=== PATIENT | male | born 1955 | race Caucasian/White ===

== ENCOUNTER 2019-12-01 20:09 | Emergency (ER) | payer BC, MEDICARE, OTHER ==
[2019-12-01 20:34] LABS: Absolute Lymphocytes (CBC) 2.6 K/uL (0.7-4.9); Hematocrit 42.7 % (39.6-49.0); Lymphocytes % 37.4 % (15.3-44.8); MPV 8.3 fL (7.6-11.3); RBC Red Blood Cell Count 4.38 M/uL (4.33-5.43)
[2019-12-01 20:41] LABS: Protime INR 0.94
[2019-12-01 20:53] LABS: Albumin 3.8 g/dL (3.4-5.0); Bilirubin Direct 0.2 mg/dL (0-0.2); Bilirubin Total 1.1 mg/dL (0.2-1.0); Potassium 3.6 mmol/L (3.5-5.1); Protein, Total 6.9 g/dL (6.4-8.2)
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
[2019-12-01] MEDS ORDERED: TETANUS & DIPHTHERIA TOX,ADULT 0.5 ML VIAL ONE (21:07)
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
[2019-12-01 23:57] VITALS: TEMP 98.7
[2019-12-02 00:14] VITALS: BP 92/59; O2SAT 96
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
== END 2019-12-01 23:44 | disposition home or self-care (01) ==
LOC: ER 20:09
DX: S02.32XA Fracture of orbital floor, left side, initial encounter for closed fracture (principal); F10.129 Alcohol abuse with intoxication, unspecified; V49.49XA Driver injured in collision with other motor vehicles in traffic accident, initial encounter; Z23 Encounter for immunization; Z95.818 Presence of other cardiac implants and grafts
CPT/HCPCS: 85025; 80048; 36415; 80320; 85610; 80076; 85730; 70450; 72125; 71260; 70486; 76377; 74177; 90471; 90714; 99284; Q9967; G0390

== ENCOUNTER 2021-01-01 11:17 | Emergency (ER) | payer OTHER, BC ==
[2021-01-01 12:33] LABS: Protime INR 1.03
[2021-01-01 12:35] LABS: Absolute Lymphocytes (CBC) 1.2 K/uL (0.7-4.9); Basophils % 0.8 % (0-1.3); Hematocrit 45.5 % (39.6-49.0); Lymphocytes % 19.1 % (15.3-44.8); MPV 8.2 fL (7.6-11.3); RBC Red Blood Cell Count 4.47 M/uL (4.33-5.43)
--- NOTE | 2021-01-01 12:45 | RAD REPORT ---
EXAM DESCRIPTION: RAD - Chest Single View - 01/01/2021 12:40 pm CLINICAL HISTORY: CHEST PAIN Chest pain. COMPARISON: CHEST SINGLE VIEW dated 03/11/2014; CHEST SINGLE VIEW dated 03/10/2014; CHEST SINGLE VIE W dated 12/11/2009 FINDINGS: Portable technique limits examination quality. The lungs are grossly clear. The heart is normal in size. No displaced fractures. IMPRESSION: No acute intrathoracic process suspected.
--- NOTE | 2021-01-01 12:49 | RAD REPORT ---
EXAM DESCRIPTION: CT - Head Brain Wo Cont - 01/01/2021 12:44 pm CLINICAL HISTORY: syncope;Dizziness Headache, drowsiness COMPARISON: Facial Bones W/ Mpr dated 12/01/2019; CT HEAD BRAIN WWO CONTRAST dated 01/16/2015 TECHNIQUE: All CT scans are performed using dose optimization technique as appropriate and may inclu de automated exposure control or mA/KV adjustment according to patient size. FINDINGS: No intracranial hemorrhage, hydrocephalus or extra-axial fluid collection.No areas of brai n edema or evidence of midline shift. Small amount of mucus is present in the inferior left maxillary antrum. The paranasal sinuses and mas toids are otherwise clear. The calvarium is intact. IMPRESSION: No acute intracranial abnormality.
[2021-01-01 13:13] LABS: ALT/SGPT 47 U/L (12-78); AST/SGOT 44 U/L (15-37); Albumin 4.1 g/dL (3.4-5.0); Alkaline Phosphatase 53 U/L (45-117); BUN Blood Urea Nitrogen 22 mg/dL (7-18); Bicarbonate 28 mmol/L (21-32); Bilirubin Direct 0.2 mg/dL (0-0.2); Bilirubin Total 0.8 mg/dL (0.2-1.0); Glucose Level 119 mg/dL (74-106); NT PRO-BNP 411 pg/mL (<125); Potassium 3.7 mmol/L (3.5-5.1); Protein, Total 7.1 g/dL (6.4-8.2); Sodium Level 139 mmol/L (136-145); Troponin (Emerg Dept Use Only) < 0.02 ng/mL (0.0-0.045)
--- NOTE | 2021-01-01 15:10 | EDPHYS ---
Physician Documentation [facility] Name: Mann Nixon Age: 65 yrs Sex: Male : 1955 Arrival Date: 01/01/2021 Time: 12:05 Bed 17 Private MD: ED Physician Bharathi Hooper HPI: 01/01 14:59 This 65 yrs old Male presents to ER via EMS with complaints of syncope. m 14:59 The patient has experienced syncope. Onset: The symptoms/episode began/occurred jm acutely, just prior to arrival. Duration: This was a single episode. Associated injury: The patient did not suffer any apparent associated injury. Associated signs and symptoms: Pertinent negatives: abdominal pain, chest pain, shortness of breath. This is a 65-year-old male with history of coronary arterial disease, CVA that presents to the ED after an acute onset syncopal episode. Patient states this occurred while he was bending over and as he was standing back up he collapsed. Patient states his next memory was waking up. Patient currently denies any unilateral weakness nausea chest pain abdominal pain. Historical: - Allergies: 12:14 No Known Allergies; bp - Home Meds: 12:14 rivaroxaban oral [Active]; Metformin Oral [Active]; losartan oral [Active]; Metoprolol bp Tartrate Oral [Active]; Nitroglycerin SL [Active]; - PMHx: 12:14 Myocardial infarction; CVA; Cerebrovascular accident; bp - Immunization history:: Adult Immunizations up to date. - Social history:: Smoking status: unknown. ROS: 14:59 Constitutional: Negative for fever, chills, and weight loss, Cardiovascular: Negative jmm for chest pain, palpitations, and edema, Respiratory: Negative for shortness of breath, cough, wheezing, and pleuritic chest pain. 14:59 Neuro: Positive for loss of consciousness. 14:59 All other systems are negative. Exam: 14:59 Constitutional: This is a well developed, well nourished patient who is awake, alert, jmm and in no acute distress. Head/Face: atraumatic. Eyes: EOMI, no conjunctival erythema appreciated ENT: Moist Mucus Membranes Neck: Trachea midline, Supple Chest/axilla: Normal chest wall appearance and motion. Cardiovascular: Regular rate and rhythm. No edema appreciated Respiratory: Normal respirations, no respiratory distress appreciated Abdomen/GI: Non distended, soft Back: Normal ROM Skin: General appearance color normal MS/ Extremity: Moves all extremities, no obvious deformities appreciated, no edema noted to the lower extremities 14:59 Neuro: Orientation: is normal, Mentation: is normal, Memory: is normal. 14:59 Psych: Behavior/mood is pleasant, cooperative, anxious. Vital Signs: 12:10 BP 112 / 94; Pulse 76; Resp 15; Temp 97.6(TE); Pulse Ox 95% on R/A; Weight 126.1 kg; 5 Height 5 ft. 8 in. (172.72 cm); Pain 0/10; 12:11 BP 112 / 94; Pulse 84; Resp 17; Temp 98; Pulse Ox 97% ; bp 13:00 BP 150 / 85; Pulse 79; Resp 13; Pulse Ox 94% ; bp 13:53 BP 104 / 92; Pulse 82; Resp 20; Pulse Ox 94% ; bp 15:31 BP 115 / 77; Pulse 76; Resp 20; Temp 98; Pulse Ox 96% ; bp 12:10 Body Mass Index 42.27 (126.10 kg, 172.72 cm) [facility] MDM: 12:24 Patient medically screened. [facility] 15:01 Data reviewed: vital signs, nurses notes. Counseling: I had a detailed discussion with [facility] the patient and/or guardian regarding: the historical points, exam findings, and any diagnostic results supporting the discharge/admit diagnosis, lab results, radiology results, the need for outpatient follow up, the need for further work-up and treatment in the hospital. Refusal of service: The patient/guardian displays adequate decision making capability and despite a detailed discussion of alternatives, benefits, risks, and consequences refuses: Admission to the hospital for further work-up and treatment. 15:06 ED course: I discussed the patient with Dr. Crawley whom advises for the patient to follow [facility] up with pcp for work clearance. Patient's vital signs have been within normal limits. Atrial fibrillation is anticoagulated. CT brain negative. H/H normal. Patient given strict return precautions. Patient understood and agrees with the plan of care. . 01/01 12:14 Order name: Basic Metabolic Panel; Complete Time: 13:17 [facility] 01/01 12:14 Order name: CBC with Diff; Complete Time: 12:52 [facility] 01/01 12:14 Order name: LFT's; Complete Time: 13:17 [facility] 01/01 12:14 Order name: Magnesium; Complete Time: 13:17 [facility] 01/01 12:14 Order name: NT PRO-BNP; Complete Time: 13:17 [facility] 01/01 12:14 Order name: PT-INR; Complete Time: 12:52 [facility] 01/01 12:14 Order name: Troponin (emerg Dept Use Only); Complete Time: 13: [facility] 01/01 12:14 Order name: XRAY Chest (1 view); Complete Time: 12:52 [facility] 01/01 12:14 Order name: EKG; Complete Time: 12:15 [facility] 01/01 12:14 Order name: Cardiac monitoring; Complete Time: 12:15 [facility] 01/01 12:14 Order name: EKG - Nurse/Tech; Complete Time: 12:15 [facility] 01/01 12:14 Order name: IV Saline Lock; Complete Time: 12:15 [facility] 01/01 12:14 Order name: Labs collected and sent; Complete Time: 12: [facility] 01/01 12:25 Order name: CT Head Brain wo Cont; Complete Time: 12:52 [facility] 01/01 12:14 Order name: O2 Per Protocol; Complete Time: 12: [facility] 01/01 12:14 Order name: O2 Sat Monitoring; Complete Time: 12:16 jm Administered Medications: No medications were administered Disposition: 16:26 Co-signature as Attending Physician, Bharathi Hooper MD. rn 16:26 I agree with the assessment and plan of care. Attestation: The patient's history, exam rn findings, diagnostics, and a summary of any interventions or procedures was reviewed in detail with Juan VINCENT. Disposition Summary: 01/01/21 15:09 Discharge Ordered Location: Home [facility] Condition: Stable [facility] Diagnosis - Syncope [facility] Followup: m - With: Private Physician - When: 1 - 2 days - Reason: Recheck today's complaints, Continuance of care, Re-evaluation by your physician Discharge Instructions: - Discharge Summary Sheet jm - Syncope jm Forms: - Medication Reconciliation Form jmm - Thank You Letter jmm - Antibiotic Education jmm - Work release form jmm - Prescription Opioid Use [facility] Signatures: Dispatcher [employer] Juan Lott PA PA jmm Nieto, Roman, MD MD rn AmberlySea napoles RN RN bp Corrections: (The following items were deleted from the chart) 12:18 12:14 Home Meds: Metformin Oral; bp bp
--- NOTE | 2021-01-01 15:10 | ER ---
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 Coronavirus screen: bp At this time, the client does not indicate any symptoms associated with coronavirus-19. Ebola Screen: No symptoms or risks identified at this time. Initial Sepsis Screen: Does the patient meet any 2 criteria? No. Patient's initial sepsis screen is negative. Does the patient have a suspected source of infection? No. Patient's initial sepsis screen is negative. Risk Assessment: Do you want to hurt yourself or someone else? Patient reports no desire to harm self or others. Onset of symptoms was January 01, 2021 at 11:10. 12:11 Method Of Arrival: EMS: [facility] bp 12:11 Acuity: TRINH 3 bp Triage Assessment: 12:14 General: Appears distressed, ill, Behavior is appropriate for age. Pain: Denies pain. bp EENT: No deficits noted. Neuro: Reports dizziness. Cardiovascular: No deficits noted. Respiratory: No deficits noted. GI: No deficits noted. : No signs and/or symptoms were reported regarding the genitourinary system. Derm: No deficits noted. Musculoskeletal: No deficits noted. Historical: - Allergies: 12:14 No Known Allergies; bp - Home Meds: 12:14 rivaroxaban oral [Active]; Metformin Oral [Active]; losartan oral [Active]; Metoprolol bp Tartrate Oral [Active]; Nitroglycerin SL [Active]; - PMHx: 12:14 Myocardial infarction; CVA; Cerebrovascular accident; bp - Immunization history:: Adult Immunizations up to date. - Social history:: Smoking status: unknown. Screenin:10 Abuse screen: Denies threats or abuse. Denies injuries from another. Nutritional bp screening: No deficits noted. Tuberculosis screening: No symptoms or risk factors identified. Fall Risk None identified. Assessment: 12:10 General: SEE TRIAGE NOTE. bp 13:00 Reassessment: No changes from previously documented assessment. Patient and/or family bp updated on plan of care and expected duration. Pain level reassessed. Patient is alert, oriented x 3, equal unlabored respirations, skin warm/dry/pink. 13:53 Reassessment: No changes from previously documented assessment. Patient and/or family bp updated on plan of care and expected duration. Pain level reassessed. ALL CURRENT ORDERS COMPLETED. 15:32 Reassessment: PT D/C HOME AMBULATORY, DX WITH SYNCOPE. bp Vital Signs: 12:10 BP 112 / 94; Pulse 76; Resp 15; Temp 97.6(TE); Pulse Ox 95% on R/A; Weight 126.1 kg; mh5 Height 5 ft. 8 in. (172.72 cm); Pain 0/10; 12:11 BP 112 / 94; Pulse 84; Resp 17; Temp 98; Pulse Ox 97% ; bp 13:00 BP 150 / 85; Pulse 79; Resp 13; Pulse Ox 94% ; bp 13:53 BP 104 / 92; Pulse 82; Resp 20; Pulse Ox 94% ; bp 15:31 BP 115 / 77; Pulse 76; Resp 20; Temp 98; Pulse Ox 96% ; bp 12:10 Body Mass Index 42.27 (126.10 kg, 172.72 cm) [facility] ED Course: 12:05 Patient arrived in ED. ss 12:05 Jenn (daughter)- [phone]. mt 12:08 Patient has correct armband on for positive identification. Placed in gown. Bed in low mh5 position. Call light in reach. Side rails up X2. Pillow given. property assessment monitor on. Pulse ox on. NIBP on. 12:09 Initial lab(s) drawn, by me, sent to lab. EKG done, by ED staff, by electrostatic powder coating technician. reviewed mh5 by Bharathi Hooper MD. Maintain EMS IV. Dressing intact. Good blood return noted. Site clean \T\ dry. 12:11 [employer], CAROL is Primary Nurse. bp 12:12 Juan Segal PA is PHCP. [facility] 12:12 Bharathi Hooper MD is Attending Physician. jm 12:14 Triage completed. bp 12:14 Arm band placed on. bp 12:14 Basic Metabolic Panel Sent. mh5 12:14 CBC with Diff Sent. mh5 12:14 LFT's Sent. 5 12:15 Magnesium Sent. 5 12:15 NT PRO-BNP Sent. 5 12:15 PT-INR Sent. 5 12:15 Troponin (emerg Dept Use Only) Sent. 5 12:40 XRAY Chest (1 view) In Process Unspecified. EDMS 12:44 CT Head Brain wo Cont In Process Unspecified. EDMS 15:32 No provider procedures requiring assistance completed. IV discontinued, intact, bp bleeding controlled, No redness/swelling at site. Pressure dressing applied. Administered Medications: No medications were administered Outcome: 15:09 Discharge ordered by . angie 15:32 Discharged to home ambulatory, with significant other. bp 15:32 Condition: stable 15:32 Discharge instructions given to patient, Instructed on discharge instructions, follow up and referral plans. medication usage, Demonstrated understanding of instructions, follow-up care, medications. 15:34 Patient left the ED. bp Signatures: Dispatcher [employer] EDAZ Juan Segal PA PA jmm Smirch, Shelby, RN RN ss Martinez, Maria [facility] Socrates Gómezah Sea Guevara RN RN bp Corrections: (The following items were deleted from the chart) 12:18 12:14 Home Meds: Metformin Oral; bp bp
[2021-01-01 15:43] VITALS: TEMP 98
[2021-01-01 15:49] VITALS: BP 115/77; O2SAT 96
== END 2021-01-01 15:34 | disposition home or self-care (01) ==
LOC: ER 11:17
DX: R55 Syncope and collapse (principal); I25.2 Old myocardial infarction; Z86.73 Personal history of transient ischemic attack (TIA), and cerebral infarction without residual deficits
CPT/HCPCS: 36415; 70450; 71045; 80048; 80076; 83735; 83880; 84484; 85025; 85610; 93005; 99284

== ENCOUNTER 2022-05-25 07:15 | Day surgery (SDC) | payer BC, OTHER ==
[2022-05-13 14:40] LABS: Absolute Lymphocytes (CBC) 1.3 K/uL (0.7-4.9); Lymphocytes % 14.8 % (15.3-44.8); MCV 100.3 fL (80-100); MPV 8.1 fL (7.6-11.3); RBC Red Blood Cell Count 4.99 M/uL (4.33-5.43)
[2022-05-13 14:57] LABS: Potassium 4.3 mmol/L (3.5-5.1)
--- NOTE | 2022-05-13 14:59 | RAD REPORT ---
EXAM DESCRIPTION: RAD - Chest Pa And Lat (2 Views) - 05/13/2022 2:26 pm CLINICAL HISTORY: Pre op pending urolift COMPARISON: Chest Single View dated 01/01/2021; CHEST SINGLE VIEW dated 03/11/2014; CHEST SINGLE VIEW dated 03/10/2014; CHEST SINGLE VIEW dated 12/11/2009 FINDINGS: Lines: None. Lungs: No evidence of edema or pneumonia. Pleural: No significant pleural effusions or pneumothorax. Cardiac: The heart size is within normal limits. Mediastinum: Within normal limits. Bones: No acute fractures. Other: None IMPRESSION: No acute cardiopulmonary disease.
--- NOTE | 2022-05-18 14:36 | EKG ---
Test Date: 2022-05-13 Test Time: 14:10:42 Yard Demurrage Clerk: JUAN MEASUREMENT RESULTS: Intervals: Rate: 94 MA: QRSD: 86 QT: 346 QTc: 432 [place]: P: MA: QRS: 27 T: 30 INTERPRETIVE STATEMENTS: Atrial fibrillation Possible Anterior infarct, age undetermined Abnormal ECG Compared to ECG 01/01/2021 12:10:45 Myocardial infarct finding now present Ventricular premature complex(es) no longer present Electronically Signed On 05-18-22 14:32:58 OFFICE 365 CONSULTANT by Gigi Khan
[2022-05-25] MEDS ORDERED: CEFAZOLIN SODIUM 2 GM/VIAL ONE (07:37)
[2022-05-25] MEDS ORDERED: NA CHLORIDE 0.9% 1,000 ML ONE (07:37)
[2022-05-25] MEDS ORDERED: FENTANYL CITR 100 MCG/2 ML ONE ×2 (08:29→09:52)
[2022-05-25] MEDS ORDERED: LIDOCAINE 1% MPF 5 ML VIAL ONE (08:29)
[2022-05-25] MEDS ORDERED: MIDAZOLAM HCL 2 MG/2 ML INJ ONE (08:29)
[2022-05-25] MEDS ORDERED: propofoL 200 MG/20 ML VIAL IV ONE (08:29)
[2022-05-25] MEDS ORDERED: NS 0.9% VIAL 10 ML ONE (08:46)
[2022-05-25] MEDS ORDERED: KETOROLAC 30 MG/ML INJ ONE (08:54)
[2022-05-25] MEDS ORDERED: ONDANSETRON 4 MG/2 ML VIAL ONE (09:01)
[2022-05-25] MEDS ORDERED: EPHEDRINE SULF 50 MG/ML VIAL ONE (09:20)
[2022-05-25] MEDS ORDERED: CODEINE 30MG/APAP 300MG TAB PO PRN (10:38)
[2022-05-25] MEDS ORDERED: PHENAZOPYRIDINE 100MG TAB PO ONE ×2 (10:38→11:17)
[2022-05-25] MEDS ORDERED: CODEINE 30MG/APAP 300MG TAB ONE (11:17)
[2022-05-25 11:27] VITALS: BP 104/88; TEMP 97.6; O2SAT 95
--- NOTE | 2022-05-25 19:19 | OP ---
Surgeon: NENA PERSAUD Preoperative Diagnoses: 1.Benign prostatic hypertrophy with lower urinary tract obstruction. 2.Incomplete emptying. 3.Elevated bladder neck without intravesically projecting median lobe. Postoperative Diagnoses: 1.Benign prostatic hypertrophy with lower urinary tract obstruction. 2.Incomplete emptying. 3.Elevated bladder neck without intravesically projecting median lobe. Procedures: 1.Prostatic urethral lift/UroLift with 8 implants used. 2.Seven implants successfully placed, 1 explanted. 3.One advanced tissue control device and implant used. 4.A total of 9 implants deployed. Indication For Procedure: Mr. Nixon is a 66-year-old gentleman with multiple medical comorbidities on anticoagulants who presented to the Urology Clinic with bothersome urinary symptoms. He underwent cystoscopic evaluation revealing significant elevation of the median bar without intravesically proj ecting median lobe along with some lateral lobar hypertrophy potentially causing obstruction. As a r esult, after counseling and considering options for management of his obstruction and also relative t o his need for anticoagulant therapy, UroLift was elected. Procedure In Detail: The patient was consented in the preoperative holding area before being transfe rred to operative suite where general anesthesia was induced. He was placed in the lithotomy positio n and padded and secured to the table appropriately. His genitalia were prepped with Hibiclens and h e was draped in standard fashion. The case was begun using a 20-Estonian sheath and visual obturator t o traverse the urethra and into the bladder with ease. As had been previously observed, there was si gnificant elevation of a median bar causing a great degree of obstruction. As a result, the first im plant was placed along with a UroLift delivery device into his bladder after removing the visual obtu rator, and it was targeted at the left anterolateral zone of his prostate between 1 and 2 o'clock. T he implant was successfully placed in that location by angling 10 degrees laterally about 1.5 to 2 cm distal to the bladder neck, deploying the trigger, which delivered the needle through the prostate t issue and angling an additional 10 degrees to ensure the needle exited the capsule of the prostate in that position. The second pull of the trigger then partially retracted the needle and delivered the capsular tab. The third pull of the trigger completely retracted the needle further tensioning the suture, and the device was then angled back towards the midline and advanced 2 to 3 mm towards the bl adder neck until the white line was centered in the delivery bay, and a fourth trigger pull placed an implant and severed the suture tailoring the length. I then placed a similar implant at the bladder neck region on the right side before placing 2 additional implants at the apex at the level of the v erumontanum on the left than on the right. I then surveyed the channel using a visual obturator and there was still significant median bar elevation with some anterior overhang in the mid zone of the p rostate. As a result, a fifth implant was placed more anteriorly on the left in a stacked position c loser to the bladder neck to attempt to elevate the bladder neck in that position. Survey of the juni nnel again using visual obturator revealed persistence of the elevated median bar despite efforts to lift the anterior channel. As a result, I utilized the UL2 device to attempt to place an additional implant into the median bar that was elevated. While I was successfully able to introduce the implan t by sweeping the median bar laterally and off to the side from the left to the right, upon survey of the implant placement, it was partially embedded in the tissue, but was too close into the bladder n graham region. As a result, I placed a sixth implant in the mid zone of the prostate on the right later alizing that tissue and the seventh implant contralaterally on the left, opening the mid zone of the prostate. I then removed the bladder neck implant, attempting to bring down the median bar using the cystoscope and a biopsy forceps. I then utilized the ATC device to grasp that tissue and this time better pulled it into the prostatic fossa and delivered the implant at this time more successfully an d away from the intraluminal surface of the bladder. In the end, a total of 8 implants of the UL2 de vice were used with 1 explanted from the bladder neck region median bar zone, and one advanced tissue control device implant from the UL1 series was used to create a continuous anterior channel. Of not e, there was still significant elevation of the mid zone of the prostate median bar and we will obser ve to see whether this continues to cause obstruction in the long run. The patient was then taken ou t of the lithotomy position after an 18-Estonian coude tipped catheter was placed into his bladder with ease with 30 cc of sterile water in the balloon. He was then awakened from general anesthesia, luque sferred to a stretcher, and then transferred to the recovery room in good condition. Complications: None. Discharge Disposition: We will observe to reassess his urinary symptoms following the procedure. If persistent obstructive LUTS are present, this would be due to the extensive median bar elevation, wh ich was not able to be adequately lowered by the UroLift procedure or the anterior channel created wa s insufficiently high to completely relieve the obstruction. In that case, a channel TURP would then be required. JAMIE/YENNI Voice ID: [id number] Report ID: [id number]
== END 2022-05-25 12:03 | disposition home or self-care (01) ==
LOC: OR 07:15
PROVIDERS: ATTEND Urology
PROC: 0T7D8DZ Dilation of Urethra with Intraluminal Device, Via Natural or Artificial Opening Endoscopic (ICD-10-PCS; principal; 2022-05-25 08:30)
DX: N40.1 Benign prostatic hyperplasia with lower urinary tract symptoms (principal); R33.9 Retention of urine, unspecified
CPT/HCPCS: 93005; 87088; 85025; 87086; 80048; 36415; 85610; 82947 ×2; 71046; 52441; 52442 ×7; J2704; J2001; J2250; J3010 ×2; A4216; J7030; J2405

== ENCOUNTER 2023-05-03 11:35 | Day surgery (SDC) | payer OTHER ==
--- NOTE | 2023-04-18 13:45 | RAD REPORT ---
EXAM DESCRIPTION: RAD - Chest Pa And Lat (2 Views) - 04/18/2023 1:39 pm CLINICAL HISTORY: Pre op pending excision of penile lesions Chest pain. COMPARISON: Chest Pa And Lat (2 Views) dated 05/13/2022; Chest Single View dated 01/01/2021; CHEST SI NGLE VIEW dated 03/11/2014; CHEST SINGLE VIEW dated 03/10/2014 TECHNIQUE: PA and lateral views of the chest were obtained. FINDINGS: The lungs are hyperexpanded compatible with COPD. The heart is upper limit of normal in si ze. No fracture or aggressive bony process. IMPRESSION: COPD without acute process identified. The USPSTF recommends annual screening for lung cancer with low-dose CT (LDCT) in adults aged 50 to 80 years who have a 20 pack-year smoking history and currently smoke or have quit within the past 15 years.
[2023-04-18 13:59] LABS: Absolute Lymphocytes (CBC) 1.6 K/uL (0.7-4.9); Hematocrit 46.7 % (39.6-49.0); Lymphocytes % 23.8 % (15.3-44.8); MPV 8.4 fL (7.6-11.3); Platelets 157 thou/uL (152-406); RBC Red Blood Cell Count 4.71 M/uL (4.33-5.43)
[2023-04-18 14:00] LABS: Protime INR 1.03
[2023-04-18 14:15] LABS: Potassium 4.1 mEq/L (3.5-5.1)
--- NOTE | 2023-04-19 13:28 | EKG ---
Test Date: 2023-04-18 Test Time: 14:17:55 Cloth Beamer: JAUN MEASUREMENT RESULTS: Intervals: Rate: 63 MS: QRSD: 90 QT: 388 QTc: 397 [place]: P: MS: QRS: 57 T: 56 INTERPRETIVE STATEMENTS: Atrial fibrillation Cannot rule out Anterior infarct, age undetermined Abnormal ECG Compared to ECG 05/13/2022 14:10:42 No significant changes Electronically Signed On 04-19-23 13:26:43 PHYTOPATHOLOGY TEACHER by Gigi Khan
[2023-05-03] MEDS ORDERED: NA CHLORIDE 0.9% 1,000 ML ONE (12:00)
[2023-05-03] MEDS ORDERED: SILVER SULFADIAZINE 1% 25 GM TOP ONE (13:32)
[2023-05-03] MEDS ORDERED: LIDOCAINE 2% MPF 5 ML VIAL ONE (13:57)
[2023-05-03] MEDS ORDERED: propofoL 200 MG/20 ML VIAL IV ONE (13:57)
[2023-05-03] MEDS ORDERED: MIDAZOLAM HCL 2 MG/2 ML INJ ONE (14:25)
[2023-05-03] MEDS ORDERED: FENTANYL CITR 100 MCG/2 ML ONE (14:25)
[2023-05-03] MEDS ORDERED: CEFAZOLIN SODIUM 2 GM/VIAL ONE (14:35)
[2023-05-03] MEDS ORDERED: BUPIVACAINE 0.25% PF 10 ML VIAL ONE ×2 (14:43→14:46)
[2023-05-03] MEDS ORDERED: BACITRACIN OINTMENT 14 GM TUBE TOP ONE (14:43)
[2023-05-03] MEDS ORDERED: LIDOCAINE 1% 20 ML MDV ONE (14:45)
[2023-05-03] MEDS ORDERED: dexAMETHasone 4 MG/ML VIAL ONE (14:55)
[2023-05-03] MEDS ORDERED: ONDANSETRON 4 MG/2 ML VIAL ONE (14:55)
[2023-05-03] MEDS ORDERED: EPHEDRINE SULF 50 MG/ML VIAL ONE (14:57)
[2023-05-03] MEDS ORDERED: CODEINE 30MG/APAP 300MG TAB PO PRN (16:12)
[2023-05-03 17:13] VITALS: BP 114/78; TEMP 96.5; O2SAT 96
--- NOTE | 2023-05-03 18:08 | OP ---
Surgeon: NENA PERSAUD Preoperative Diagnosis: Genital warts/condyloma acuminata. Postoperative Diagnosis: Genital warts/condyloma acuminata. Principal Procedure: Sleeve circumcision. Indication For Procedure: Mr. Nixon is a 67-year-old gentleman, well known to me, who presented to the Urology Clinic with some papillary condylomatous appearing lesions involving the foreskin. He wa s counseled on the likelihood they could represent condyloma acuminata and the potential to degenerat e and result in squamous cell carcinoma down the line. He initially elected to have them removed wit h excision and fulguration, but today changed his mind and decided to proceed with circumcision since the lesions were indeed only involving the foreskin and would be completely removed with a circumcis ion. Procedure In Detail: The patient was consented in the preoperative holding area before being transfe rred to the operative suite where general anesthesia was induced. He was given Ancef 2 g IV antimicr obial prophylaxis, and pneumo boots were provided for DVT prophylaxis. He was placed supine on the o perative table, padded, and secured appropriately. The prepubic hair was trimmed using a shaver befo re being prepped with Betadine and draped in standard fashion. I then performed a penile block using an 18-gauge needle and a 1:1 mixture of 0.25% Marcaine and 1% lidocaine injected in the infrapubic m idline, 10 cc, and in the region of the neurovascular bundles bilaterally, 10 cc each, for a total of approximately 10 cc delivery. After the block was applied, the circumcision was then begun by faviola ng a line at the level of the carrera of the glans circumferentially in the shaft skin and then above any condylomatous appearing lesions within the prepuce. The skin was incised using a 15 blade, and t hen divided in the dorsal midline, avoiding the condylomatous lesions with the Bovie. The intervenin g skin was then excised from the Pemberton's fascia by dividing through the dartos layers, releasing the s kin and subcutaneous tissues which were then sent for pathologic analysis. I then irrigated the tiss ue and we all changed gloves to avoid exposing the wound to the suspected condylomatous lesions. We then fulgurated carefully any subcutaneous vessels seen with any kind of ooze or bleeding beneath the remaining skin and within the dartos layers of the penis. I then began the reconstruction. Using 3 -0 chromic suture dipped in bacitracin, quadrant sutures were placed interrupted. Then, the interven ing tissues were closed using a running horizontal mattress of the 3-0 chromic suture dipped in bacit racin. In the end, the cosmetic result was excellent, and the phallus was hemostatic. We then used a wet-to-dry to clean off the Betadine and applied bacitracin to the circumcision line before applyin g a Christiana and a Coban for gentle pressure dressing application. Betadine was then applied to the gla ns penis and he was then awakened from general anesthesia. He was transferred to a stretcher before being transferred to the recovery room in good condition. Complications: None. Discharge Disposition: He should follow up in the Urology Clinic in about 3 to 6 weeks' time interva l assessment. He will be instructed to resume the Xarelto approximately 5 days postoperatively to al low adequate time for any vessels to completely seal and avoid hopefully a complication of the penile hematoma. JAMIE/MODL Voice ID: [id number] Report ID: [id number]
== END 2023-05-03 17:04 | disposition home or self-care (01) ==
LOC: OR 11:35
PROVIDERS: ATTEND Urology
DX: A63.0 Anogenital (venereal) warts (principal)
CPT/HCPCS: 93005; 87088; 85025; 87086; 80048; 36415; 85610; 82947 ×2; 88305; 87077; 87186; 71046; J2704; J1100; J2001 ×2; J2250; J3010; J2405; J7030; 88304

== ENCOUNTER 2024-05-23 08:37 | Observation (INO) | payer OTHER ==
--- OUTSIDE RECORDS SUMMARY | 2024-05-23 08:42 | XMS REPORT | Continuity of Care Document ---
Author Name Unknown Address [address] [facility]. [address] [place] [address] [facility] thconnect Address [address] [facility] [address] [place] [address] Care Team Providers Care Applications Instructor Name Role Phone DEANNA ROSA Primary Care Physician DEANNA Mendenhall Attending Clinician JOSE JUAN Poe Attending Clinician DR DEANNA Hernandez Attending Clinician [place] [phone] Attending Clinician DR DEANNA Mccord Admitting Clinician [place] Payers Payer Name Policy Type Policy Number Effective Date Expirati on Date Source [employer] COMPLETE - OP [id number] [employer] COM[employer] - OP [id number] [employer] MEDICARE PPO [id number] [facility] 53 [id number] [facility] Problems Condition Name Condition Details Condition Category Status Onset Date Resolution Date Last Treatment Date Treating Clinician Comments Source [id number] Benign prostatic hyperplasi a with lower urinary tract symptoms Problem [facility] [id number] Hypogonadi sm in male Problem [facility] [id number] Balanopost hitis Problem [facility] Anogenital warts Condyloma acuminata Problem [facility] [id number] OAB (overactiv e bladder) Problem [facility] [id number] Erectile dysfunctio n due to diseases classified elsewhere Problem [facility] [id number] Type 2 diabetes mellitus with other specified complicati on Problem [facility] [id number] Other obstructiv e and reflux uropathy Problem [facility] [id number] Genital warts Problem [facility] [id number] History of kidney stones Problem [facility] Social History Social Habit Start Date Stop Date Quantity Comments Source History of Tobacco Use [facility] Sex Assigned At [facility] Smoking Status Start Date Stop Date Source Never Smoker [facility] Former Smoker 2023-03-31 00:00:00 2023-03-31 00:00:00 [facility] Medications Ordered Medication Name Filled Medication Name Start Date Stop Date Current Medication? Ordering Clinician Indication Dosage Frequency Signature (SIG) Comments Components Source VESIcare 10 MG VESIcare 10 MG 11-29 00:00: 00 No 1{table t} QD VESIcare 10 MG Cialis 20 MG Cialis 20 MG 11-29 00:00: 00 No QD Cialis 20 MG Amoxicillin 500 MG Amoxicillin 500 MG 2022-05 00:00: 00 No 1{capsu le} TID Amoxicilli n 500 MG Rosuvastati n Calcium 40 MG Rosuvastati n Calcium 40 MG No 1{table t} Rosuvastat in Calcium 40 MG Synjardy XR 12.5-1000 MG Synjardy XR 12.5-1000 MG No 1{table t_with_ breakfa st} QD Synjardy XR 12.5-1000 MG Omeprazole 20 MG Omeprazole 20 MG No QD Omeprazole 20 MG Levocetiriz ine Dihydrochlo ride 5 MG Levocetiriz ine Dihydrochlo ride 5 MG No 1{table t_in_ e_eveni ng} QD Levocetiri zine Dihydrochl oride 5 MG amLODIPine- Olmesartan 5-40 MG amLODIPine- Olmesartan 5-40 MG No 1{table t} QD amLODIPine -Olmesarta n 5-40 MG Eliquis 5 mg 5 mg Eliquis 5 mg 5 mg No Eliquis 5 mg 5 mg Vital Signs Vital Name Observation Time Observation Value Aleisha gee height 2023-11-30 15:15:00 71 [in_i] Commo n [facility] weight 2023-11-30 15:15:00 249.0 [lb_av] Co mmon [facility] temperature 2023-11-30 15:15:00 97.6 [degF] Com [facility] bmi 2023-11-30 15:15:00 34.72 kg/m2 Comm on [facility] oximetry 2023-11-30 15:15:00 95 % Commo n [facility] respiratory rate 2023-11-30 15:15:00 18 /min Common [facility] blood pressure systolic 2023-11-30 15:15:00 130 mm[Hg] [facility] blood pressure diastolic 2023-11-30 15:15:00 84 mm[Hg] [facility] blood pressure diastolic 2023-05-19 13:15:00 81 mm[Hg] [facility] height 2023-05-19 13:15:00 71 [in_i] Commo n [facility] weight 2023-05-19 13:15:00 258.8 [lb_av] Co mmon [facility] temperature 2023-05-19 13:15:00 97.2 [degF] Com mon [facility] bmi 2023-05-19 13:15:00 36.09 kg/m2 Comm on [facility] oximetry 2023-05-19 13:15:00 97 % Commo n [facility] respiratory rate 2023-05-19 13:15:00 18 /min Common [facility] blood pressure systolic 2023-05-19 13:15:00 129 mm[Hg] Common [facility] height 2023-03-31 10:30:00 71 [in_i] Commo n [facility] weight 2023-03-31 10:30:00 255.2 [lb_av] Co [facility] temperature 2023-03-31 10:30:00 97.6 [degF] Com [facility] bmi 2023-03-31 10:30:00 35.59 kg/m2 Comm on [facility] oximetry 2023-03-31 10:30:00 99 % Commo n [facility] respiratory rate 2023-03-31 10:30:00 18 /min [facility] blood pressure systolic 2023-03-31 10:30:00 104 mm[Hg] Common [facility] blood pressure diastolic 2023-03-31 10:30:00 65 mm[Hg] [facility] height 2022-12-30 10:30:00 71 [in_i] Commo n [facility] weight 2022-12-30 10:30:00 259.2 [lb_av] Co [facility] temperature 2022-12-30 10:30:00 97.2 [degF] Com [facility] bmi 2022-12-30 10:30:00 36.15 kg/m2 Comm on [facility] oximetry 2022-12-30 10:30:00 97 % Commo n [facility] respiratory rate 2022-12-30 10:30:00 18 /min [facility] blood pressure systolic 2022-12-30 10:30:00 125 mm[Hg] Common [facility] blood pressure diastolic 2022-12-30 10:30:00 79 mm[Hg] Common [facility] blood pressure systolic 2022-09-29 11:30:00 124 mm[Hg] Common [facility] blood pressure diastolic 2022-09-29 11:30:00 77 mm[Hg] [facility] height 2022-09-29 11:30:00 71 [in_i] Commo n [facility] weight 2022-09-29 11:30:00 268.8 [lb_av] Co mmon [facility] temperature 2022-09-29 11:30:00 97.7 [degF] Com mon [facility] bmi 2022-09-29 11:30:00 37.49 kg/m2 Comm on [facility] oximetry 2022-09-29 11:30:00 93 % Commo n [facility] respiratory rate 2022-09-29 11:30:00 18 /min [facility] height 2022-06-30 16:45:00 71 [in_i] Commo n [facility] weight 2022-06-30 16:45:00 276 [lb_av] Comm on [facility] temperature 2022-06-30 16:45:00 97.8 [degF] Com mon [facility] bmi 2022-06-30 16:45:00 38.49 kg/m2 Comm on [facility] oximetry 2022-06-30 16:45:00 99 % Commo n [facility] respiratory rate 2022-06-30 16:45:00 18 /min [facility] blood pressure systolic 2022-06-30 16:45:00 139 mm[Hg] [facility] blood pressure diastolic 2022-06-30 16:45:00 84 mm[Hg] [facility] height 2022-04-21 08:00:00 71 [in_i] Commo n [facility] weight 2022-04-21 08:00:00 269 [lb_av] Comm on [facility] temperature 2022-04-21 08:00:00 97.1 [degF] Com mon [facility] bmi 2022-04-21 08:00:00 37.51 kg/m2 Comm on [facility] oximetry 2022-04-21 08:00:00 99 % Commo n [facility] respiratory rate 2022-04-21 08:00:00 18 /min Common [facility] blood pressure systolic 2022-04-21 08:00:00 138 mm[Hg] Common [facility] blood pressure diastolic 2022-04-21 08:00:00 93 mm[Hg] [facility] height 2022-03-11 09:30:00 71 [in_i] Commo n [facility] weight 2022-03-11 09:30:00 271.2 [lb_av] Co mmon [facility] temperature 2022-03-11 09:30:00 97.9 [degF] Com mon [facility] bmi 2022-03-11 09:30:00 37.82 kg/m2 Comm on [facility] oximetry 2022-03-11 09:30:00 99 % Commo n [facility] respiratory rate 2022-03-11 09:30:00 18 /min [facility] blood pressure systolic 2022-03-11 09:30:00 135 mm[Hg] [facility] blood pressure diastolic 2022-03-11 09:30:00 76 mm[Hg] [facility] Procedures Procedure Date / Time Performed Performing Clinicia n Source PVR 2022-12-30 00:00:00 Common [facility] PVR 2022-06-30 00:00:00 Common S [facility] Encounters Start Date/Time End Date/Time Encounter Type Admission Type Attending Clinicians Care Facility Care Department Encounter ID Source 2022-08-30 14:55:16 Outpatient ELLYLA MANJARREZ [id number] [facility] 2022-06-29 11:40:01 Outpatient [facility] [id number] [facility] 2022-03-16 08:55:04 Outpatient STLMLC STL[facility]C [id number] [facility] 2022-03-11 08:42:04 Outpatient STLMLC STLMLC [id number] [facility] 2022-01-12 09:35:55 Outpatient ELCAMPO ELCAMPO [id number] [facility] 2022-01-12 09:30:09 Outpatient ELCAMPO ELCAMPO [id number] [facility] 2021-09-25 11:41:27 Outpatient ELCAMPO ELCAMPO [id number] [facility] 2024-04-23 08:58:00 2024-04-23 08:58:00 Outpatient DIMITRI WHELANMIHAI DEANNA [facility] [id number] [facility] 2023-11-30 00:00:00 2023-11-30 00:00:00 OFFICE VISIT ESTAB PT LEVEL 4 [facility] STLMLC [id number] [facility] 2023-11-28 10:18:00 2023-11-28 10:18:00 Outpatient DEANNA GARCIA [facility] [id number] [facility] 2023-09-15 08:14:00 2023-09-15 08:14:00 Outpatient DIMITRI JOSE JUAN RICARDO [facility] [id number] [facility] 2023-05-19 00:00:00 2023-05-19 00:00:00 OFFICE VISIT ESTAB PT LEVEL 3 STLMLC STLMLC [id number] [facility] 2023-05-01 00:00:00 2023-05-01 00:00:00 (TEL) STLMLC STLMLC [id number] [facility] 2023-03-31 00:00:00 2023-03-31 00:00:00 OFFICE VISIT ESTAB PT LEVEL 4 [facility]MLC STLMLC [id number] [facility] 2023-01-10 00:00:00 2023-01-10 00:00:00 (TEL) STLMLC STLMLC [id number] [facility] 2022-12-30 00:00:00 2022-12-30 00:00:00 NO CHARGE STLMLC STLMLC [id number] [facility] 2022-09-29 00:00:00 2022-09-29 00:00:00 OFFICE VISIT ESTAB PT LEVEL 3 STLMLC STLMLC [id number] [facility] 2022-08-30 14:55:00 2022-08-30 14:56:00 Outpatient DEANNA CASEY [id number] [facility] [id number] [facility] 2022-06-30 00:00:00 2022-06-30 00:00:00 OFFICE VISIT ESTAB PT LEVEL 2 STLMLC STLMLC [id number] [facility] 2022-04-21 00:00:00 2022-04-21 00:00:00 OFFICE VISIT ESTAB PT LEVEL 4 STLMLC STLMLC [id number] [facility] 2022-03-16 00:00:00 2022-03-16 00:00:00 (TEL) STLMLC STLMLC [id number] [facility] 2022-03-11 00:00:00 2022-03-11 00:00:00 OFFICE VISIT NEW PT LEVEL 4 STLMLC STLMLC [id number] [facility] 2022-01-12 09:33:00 2022-01-12 09:34:00 Outpatient DEANNA CASEY [id number] [facility] [id number] [facility] 2021-08-07 09:39:00 2021-08-07 09:39:00 Outpatient DEANNA CASEY [id number] [facility] [id number] Dimitri linares [facility]
[2024-05-23] MEDS ORDERED: MORPHINE 2 MG/ML SYR ONE (08:55)
[2024-05-23 09:08] LABS: PT Prothrombin Time 10.6 SECONDS (9.4-12.5); Protime INR 0.94
[2024-05-23 09:11] LABS: Absolute Eosinophils 0.1 K/uL (0-0.5); Absolute Lymphocytes (CBC) 1.8 K/uL (0.7-4.9); Absolute Monocytes 0.7 K/uL (0.1-1.3); Basophils % 0.5 % (0-1.3); Eosinophils % 1.6 % (0-4.4); Hematocrit 55.2 % (39.6-49.0); Hemoglobin 18.7 g/dL (13.6-17.9); Lymphocytes % 20.3 % (15.3-44.8); MCH 33.7 pg (27.0-35.0); MCHC 33.9 g/dL (32.0-36.0); MCV 99.6 fL (80-100); MPV 8.3 fL (7.6-11.3); Monocytes % 8.7 % (3.3-12.3); Neutrophils % 68.9 % (41.7-73.7); Nucleated Red Blood Cells % 0.3 % (0-0); Platelets 182 thou/uL (152-406); RBC Red Blood Cell Count 5.54 M/uL (4.33-5.43); Red Cell Distribution Width 14.1 % (12.1-15.2)
[2024-05-23 09:24] LABS: Albumin 4.2 g/dL (3.4-5.0); Albumin/Globulin Ratio 1.2 (1.1-1.8); Anion Gap 10.4 mEq/L (5.0-15.0); Bilirubin Direct 0.2 mg/dL (0-0.2); Bilirubin Indirect, Calculated 0.7 mg/dL (0.2-0.8); Bilirubin Total 0.9 mg/dL (0.2-1.0); Globulin 3.4 g/dL (2.3-3.5); Potassium 4.4 mEq/L (3.5-5.1); Protein, Total 7.6 g/dL (6.4-8.2); Troponin High Sensitivity 6.8 pg/mL (<58.9)
--- NOTE | 2024-05-23 09:30 | RAD REPORT ---
EXAMINATION: ONE VIEW CHEST XR CLINICAL INDICATION: Male, 68 years old.,DYSPNEA TECHNIQUE: Frontal chest projection is submitted. Examination is limited by patient positioning and t echnique. COMPARISON: 04/18/2023 FINDINGS: The lungs are well inflated and clear. No pneumothorax or sizable effusion. The heart is normal in s ize. Mediastinal contours are unremarkable. IMPRESSION: No acute intrathoracic abnormalities.
[2024-05-23] MEDS ORDERED: ASPIRIN 81 MG CHEWABLE TABLET ONE (09:42)
--- NOTE | 2024-05-23 09:43 | ER ---
Nurse's Notes [facility] Name: Mann Nixon Age: 68 yrs Sex: Male : 1955 Arrival Date: 05/23/2024 Time: 08:37 Bed 2 Private MD: Diagnosis: Chest pain, unspecified;Dyspnea, unspecified Presentation: 05/23 08:43 Chief complaint: EMS states: patient called for heaviness in bilateral arms for 2 days. ko1 Coronavirus screen: At this time, the client does not indicate any symptoms associated with coronavirus-19. Ebola Screen: No symptoms or risks identified at this time. Initial Sepsis Screen: Does the patient meet any 2 criteria? No. Patient's initial sepsis screen is negative. Does the patient have a suspected source of infection? No. Patient's initial sepsis screen is negative. Risk Assessment: Do you want to hurt yourself or someone else? Patient reports no desire to harm self or others. Onset of symptoms was May 21, 2024. 08:43 Method Of Arrival: EMS: [facility] ko1 08:43 Acuity: TRINH 3 ko1 Triage Assessment: 08:45 General: Appears in no apparent distress. Behavior is calm, cooperative, appropriate ko1 for age, anxious. Pain: Denies pain. EENT: No deficits noted. No signs and/or symptoms were reported regarding the EENT system. Neuro: Reports heaviness in both arms for 2 days. Cardiovascular: No deficits noted. Respiratory: No deficits noted. GI: No deficits noted. No signs and/or symptoms were reported involving the gastrointestinal system. : No deficits noted. No signs and/or symptoms were reported regarding the genitourinary system. Derm: No deficits noted. No signs and/or symptoms reported regarding the dermatologic system. Musculoskeletal: No deficits noted. No signs and/or symptoms reported regarding the musculoskeletal system. Historical: - Allergies: 08:45 No Known Allergies; ko1 - PMHx: 08:45 Cerebrovascular accident; Myocardial infarction; Hypertensive disorder; ko1 - PSHx: 08:45 Stented artery; ko1 - Immunization history:: Adult Immunizations unknown. - Infectious Disease History:: Denies. - Social history:: Smoking status: Patient/guardian denies using tobacco. - Family history:: not pertinent. - Hospitalizations: : No recent hospitalization is reported. Screenin:47 [facility] ED Fall Risk Assessment (Adult) History of falling in the last 3 months, ko1 including since admission No falls in past 3 months (0 pts) Confusion or Disorientation No (0 pts) Intoxicated or Sedated No (0 pts) Impaired Gait No (0 pts) Mobility Assist Device Used No (0 pt) Altered Elimination No (0 pt) Score/Fall Risk Level 0 - 2 = Low Risk Oriented to surroundings, Maintained a safe environment, Educated pt \T\ family on fall prevention, incl call for assistance when getting out of bed, Assessed \T\ reinforced patient's understanding of fall precautions, Hourly rounding (assess needs \T\ fall precautionary measures) done. Abuse screen: Denies threats or abuse. Denies injuries from another. Nutritional screening: No deficits noted. Tuberculosis screening: No symptoms or risk factors identified. Assessment: 08:47 Reassessment: see triage note. ko1 Vital Signs: 08:43 BP 136 / 104; Pulse 92; Resp 15; Temp 97.8; Pulse Ox 99% on R/A; ko1 10:37 BP 111 / 96; Pulse 95; Resp 16; Pulse Ox 98% ; ko1 11:54 BP 133 / 97; Pulse 88; Resp 15; Pulse Ox 99% ; ko1 ED Course: 08:38 Patient arrived in ED. ko1 08:42 Bharathi Hooper MD is Attending Physician. rn 08:43 Rowena Azul, CAROL is Primary Nurse. ko1 08:45 Triage completed. ko1 08:45 Arm band placed on right wrist. Patient placed in an exam room, on a stretcher, on ko1 motorboat mechanic inboard, on pulse oximetry, Patient notified of wait time. 08:47 Patient has correct armband on for positive identification. Placed in gown. Bed in low ko1 position. Call light in reach. Side rails up X2. Provided Education on: labs, meds. Client placed on continuous cardiac and pulse oximetry monitoring. NIBP monitoring applied. full stack developer on. Door closed. Noise minimized. Lights dimmed. Warm blanket given. Pillow given. 08:47 No provider procedures requiring assistance completed. EKG done, by ED staff, reviewed ko1 by Bharathi Hooper MD. 08:53 Basic Metabolic Panel Sent. ko1 08:53 CBC with Diff Sent. ko1 08:53 LFT's Sent. ko1 08:53 NT PRO-BNP Sent. ko1 08:53 PT-INR Sent. ko1 08:53 Troponin HS Sent. ko1 08:58 Initial lab(s) drawn, by me, sent to lab. Inserted saline lock: 20 gauge in left kb4 antecubital area, using aseptic technique. Blood collected. Flushed with 10 mL NS. 09:17 XRAY Chest (1 view) In Process Unspecified. EDMS 09:42 Minal Patel MD is Hospitalizing Provider. rn 11:40 Influenza Screen (A Sent. ko1 11:40 SARS-COV-2 Antigen Rapid Sent. ko1 11:40 Respiratory Syncytial Virus Ag Sent. ko1 11:54 Patient admitted, IV remains in place. ko1 Administered Medications: 08:59 Drug: morphine IVP or IV 2 mg IVP once over 4 mins Route: IVP; Infused Over: 4 mins; ko1 Site: left antecubital; 09:14 Follow up: Response: No adverse reaction ko1 09:44 Drug: Aspirin PO Chewable Tablet 324 mg PO once; 81 mg tablets x 4 Route: PO; rs5 10:14 Follow up: Response: No adverse reaction ko1 Medication: 08:47 VIS not applicable for this client. ko1 Outcome: 09:42 Decision to Hospitalize by Provider. rn 11:54 Admitted to Tele accompanied by [facility], via stretcher, room 204, with chart, ko1 11:54 Condition: stable 11:54 Instructed on the need for admit, 11:57 Patient left the ED. ko1 Signatures: Dispatcher [employer] EDMS Bharathi Hooper MD MD rn Oliver, Kathy, RN RN ko1 Phillip Hinds RN RN rs5 Amanda Mcguire kb4
--- NOTE | 2024-05-23 09:44 | EDPHYS ---
Physician Documentation [facility] Name: Mann Nixon Age: 68 yrs Sex: Male : 1955 Arrival Date: 05/23/2024 Time: 08:37 Bed 2 Private MD: ED Physician Bharathi Hooper HPI: 05/23 09:39 This 68 yrs old Male presents to ER via EMS with complaints of sob, heavy arms for 2 rn days. 09:39 The patient has shortness of breath at rest. Onset: The symptoms/episode began/occurred rn 3 day(s) ago. Duration: The symptoms are intermittent. The patient's shortness of breath is aggravated by exertion, light activity, is alleviated by nothing. Severity of symptoms: At their worst the symptoms were moderate in the emergency department the symptoms are unchanged. The patient has not experienced similar symptoms in the past. Patient reports 2 or 3 days of dyspnea, chest discomfort that radiates to both arms, fatigue. Has history of multiple stents, last stent 12 years ago without recent workup. Does not feel ill. No fever or chills. No hemoptysis. No current chest pain or back pain. No abdominal pain. Patient states this pain in his arms feels different and more proximal than his neuropathic pain that he experiences often and chronic.. Historical: - Allergies: 08:45 No Known Allergies; ko1 - PMHx: 08:45 Cerebrovascular accident; Myocardial infarction; Hypertensive disorder; ko1 - PSHx: 08:45 Stented artery; ko1 - Immunization history:: Adult Immunizations unknown. - Infectious Disease History:: Denies. - Social history:: Smoking status: Patient/guardian denies using tobacco. - Family history:: not pertinent. - Hospitalizations: : No recent hospitalization is reported. ROS: 09:39 Constitutional: Negative for fever, chills, and weight loss, Cardiovascular: Positive rn for chest pain Respiratory: Positive for shortness of breath Abdomen/GI: Negative for abdominal pain, nausea, vomiting, diarrhea, and constipation, MS/Extremity: Positive for pain to bilateral arms Skin: Negative for injury, rash, and discoloration, Neuro: Negative for headache, weakness, and seizure, Exam: 09:39 Constitutional: This is a well developed, well nourished patient who is awake, alert, rn emotional and tearful Head/Face: Normocephalic, atraumatic. Cardiovascular: Regular rate, irregular rhythm. No pulse deficits Respiratory: Mild hyperventilation Abdomen/GI: Soft, nontender, nondistended MS/ Extremity: Pulses equal, no cyanosis. Neurovascular intact. Full, normal range of motion. Equal circumference. Neuro: Awake and alert, GCS 15 15:54 ECG was reviewed by the Attending Physician. rn Vital Signs: 08:43 BP 136 / 104; Pulse 92; Resp 15; Temp 97.8; Pulse Ox 99% on R/A; ko1 10:37 BP 111 / 96; Pulse 95; Resp 16; Pulse Ox 98% ; ko1 11:54 BP 133 / 97; Pulse 88; Resp 15; Pulse Ox 99% ; ko1 MDM: 08:43 Medical Screening Exam initiated rn 09:39 Differential diagnosis: Anxiety Reaction Myocardial Infarction Pneumothorax pulmonary rn edema. Data reviewed: vital signs, nurses notes, lab test result(s), EKG, radiologic studies, plain films, and as a result, I will admit patient. Consideration of Admission/Observation Patient was admitted/placed on observation. Escalation of care including admission/observation considered. Counseling: I had a detailed discussion with the patient and/or guardian regarding the historical points, exam findings, and any diagnostic results supporting the discharge/admit diagnosis, lab results, radiology results, the need for further work-up and treatment in the hospital. 05/23 08:50 Order name: Basic Metabolic Panel; Complete Time: 09:30 rn 05/23 08:50 Order name: CBC with Diff; Complete Time: :30 rn 05/23 08:50 Order name: LFT's; Complete Time: :30 rn 05/23 08:50 Order name: NT PRO-BNP; Complete Time: :30 rn 05/23 08:50 Order name: PT-INR; Complete Time: :30 rn 05/23 08:50 Order name: Troponin HS; Complete Time: :30 rn 05/23 10:58 Order name: Influenza Screen (A EDOK 05/23 10:58 Order name: Respiratory Syncytial Virus Ag EDOK 05/23 10:58 Order name: SARS-COV-2 Antigen Rapid EDOK 05/23 10:58 Order name: T4 Free EDOK 05/23 10:58 Order name: Thyroid Stimulating Hormone EDOK 05/23 10:58 Order name: Urinalysis w/ reflexes EDMS 05/23 10:58 Order name: Basic Metabolic Panel EDMS 05/23 10:58 Order name: Basic Metabolic Panel EDMS 05/23 10:58 Order name: Basic Metabolic Panel EDMS 05/23 10:58 Order name: Basic Metabolic Panel EDMS 05/23 10:58 Order name: CBC with Automated Diff EDMS 05/23 10:58 Order name: CBC with Automated Diff EDMS 05/23 10:58 Order name: CBC with Automated Diff EDMS 05/23 10:58 Order name: CBC with Automated Diff EDMS 05/23 10:58 Order name: Hemoglobin A1c EDMS 05/23 10:58 Order name: Hemoglobin A1c EDMS 05/23 10:58 Order name: Lipid Profile EDMS 05/23 10:58 Order name: Lipid Profile EDMS 05/23 10:58 Order name: Magnesium EDMS 05/23 10:58 Order name: Magnesium EDMS 05/23 10:58 Order name: Magnesium EDMS 05/23 10:58 Order name: Magnesium EDMS 05/23 10:58 Order name: Phosphorus EDMS 05/23 10:58 Order name: Phosphorus EDMS 05/23 10:58 Order name: Phosphorus EDMS 05/23 10:58 Order name: Phosphorus EDMS 05/23 10:58 Order name: Troponin High Sensitivity EDMS 05/23 10:58 Order name: Troponin High Sensitivity EDMS 05/23 10:58 Order name: Troponin High Sensitivity EDMS 05/23 08:50 Order name: XRAY Chest (1 view); Complete Time: 09:30 rn 08 08:50 Order name: Cardiac monitoring; Complete Time: 08:52 rn 08 08:50 Order name: EKG - Nurse/Tech; Complete Time: 08:52 rn 08 08:50 Order name: IV Saline Lock; Complete Time: 08:52 rn 08 08:50 Order name: Labs collected and sent; Complete Time: 08:52 rn 05/23 08:50 Order name: O2 Per Protocol; Complete Time: 08:52 rn 05/23 08:50 Order name: O2 Sat Monitoring; Complete Time: 08:52 rn EC:54 Rate is 87 beats/min. Rhythm is irregularly irregular. QRS [place] is Normal. QRS interval rn is normal. QT interval is normal. No Q waves. T waves are Normal. No ST changes noted. Clinical impression: Atrial Fibrillation. Interpreted by me. Reviewed by me. Administered Medications: 08:59 Drug: morphine IVP or IV 2 mg IVP once over 4 mins Route: IVP; Infused Over: 4 mins; ko1 Site: left antecubital; 09:14 Follow up: Response: No adverse reaction ko1 09:44 Drug: Aspirin PO Chewable Tablet 324 mg PO once; 81 mg tablets x 4 Route: PO; rs5 10:14 Follow up: Response: No adverse reaction ko1 Disposition Summary: 05/23/24 09:42 Hospitalization Ordered Notes: Hospitalization Status: Observation rn Provider: Minal Patel rn Location: Telemetry/MedSurg (observation) rn Condition: Stable rn Problem: new rn Symptoms: have improved rn Bed/Room Type: Standard rn Room Assignment: 204(05/23/24 11:04) eb Diagnosis - Chest pain, unspecified rn - Dyspnea, unspecified rn Forms: - Medication Reconciliation Form rn - SBAR form rn - Leadership Thank You Letter rn Signatures: Dispatcher [employer] EDOK Bharathi Hooper MD MD rn Botello, Elizabeth eb Oliver, Kathy, RN RN ko1 Phillip Hinds RN RN rs5 Corrections: (The following items were deleted from the chart) 08:51 08:51 BASIC METABOLIC PANEL+C.LAB.BRZ ordered. [facility] EDOK 08:51 08:51 CBC+H.LAB.BRZ ordered. [facility] 08:51 08:51 HEPATIC FUNCTION+C.LAB.BRZ ordered. [facility] 08:51 08:51 PROBNP+C.LAB.BRZ ordered. [facility] EDOK 08:51 08:51 PROTIME (+INR)+COAG.LAB.BRZ ordered. [facility] EDOK 08:51 08:51 Troponin High Sensitivity+C.LAB.BRZ ordered. [facility] 08:51 08:51 Chest Single View+RAD.RAD.BRZ ordered. [facility] 09:41 09:39 Patient reports 2 or 3 days of dyspnea, chest discomfort that radiates to both rn arms, fatigue. Has history of multiple stents, last stent 12 years ago without recent workup. Does not feel ill. No fever or chills. No hemoptysis. No current chest pain or back pain. No abdominal pain.. rn 11:04 09:42 rn eb
--- NOTE | 2024-05-23 10:24 | P.HP ---
Certification for Inpatient Patient admitted to: Observation With expected LOS: <2 Midnights Patient will require the following post-hospital care: None Practitioner: I am a practitioner with admitting privileges, knowledge of patient current condition, hospital course, and medical plan of care. Services: Services provided to patient in accordance with Admission requirements found in Title 42 Section 412.3 of the Code of Federal Regulations Patient History Date of Service: 05/23/24 Reason for admission: Chest pain r/o History of Present Illness: Mann Nixon is a 68 year old male with Pmhx Cerebrovascular accident (x2), Myocardial infarction with stent, HTN, Afib who presented to the ED with SOB and chest and arms heaviness x 2 days. Family at the bedside reports, Mann has been laying in bed for two days. Mann reports feeling congested, SOB, and denies coughing. Laboratory evaluation significant for H/H 18.7/55.2, BNP 140, Serum glucose 131. chest x-ray Reports "The lungs are well inflated and clear. No pneumothorax or sizable effusion. The heart is normal in size. Mediastinal contours are unremarkable." Mann will be admitted to hospitalist service for further evaluation and treatment of Chest pressure and congestion. Dr. Lynne consulted. Allergies No Known Allergies Allergy (Verified 05/03/23 12:32) Home Medications: Amlodipine Bes/Olmesartan Med [Amlodipine-Olmesartan 5-40 mg] 1 each PO DAILY 05/13/22 Apixaban [Eliquis] 5 mg PO DAILY 05/13/22 Aspirin [Aspirin EC 81 MG] 81 mg PO DAILY 05/13/22 Empagliflozin/Metformin HCl [Synjardy 12.5-1,000 mg Tablet] 1 each PO DAILY 05/13/22 Omeprazole 20 mg PO DAILY 05/13/22 Rosuvastatin Calcium 40 mg PO DAILY 05/13/22 Cyanocobalamin (Vitamin B-12) [Vitamin B12] 2,500 mcg PO DAILY 04/18/23 Vitamin D3/Vitamin K2 (Mk4) [K2 Plus D3 Tablet] 1 each PO DAILY 04/18/23 Abacavir/Lamivudine/Zidovudine [Trizivir Tablet] 1 tab PO DAILY 05/23/24 Folic Acid 1 mg PO DAILY 05/23/24 Ropinirole HCl 2 mg PO DAILY 05/23/24 - Past Medical/Surgical History Diabetic: Yes -: Cardiac stents x1 in lad jun -: htn -: dm niddm -: kidney stones -: sleep apnea, pt uses cpap -: appendectomy - Family History Father -: Heart disease, Hypertension, Cancer Notes: Kidney stones, Lung ca Mother -: Stroke, Cancer Notes: Mellanoma Brother Notes: Irregular heart rhytm - Social History Alcohol use: Yes CD- Drugs: No Caffeine use: Yes Review of Systems ENT: Nose Congestion Respiratory: Shortness of Breath Cardiovascular: Chest Pain (Chest heaviness) Neurological: Other (Heavy bilateral upper extremities) Physical Examination - Physical Exam General: Alert, In no apparent distress, Oriented x3, Other (uncomfortable) HEENT: Atraumatic, Normocephalic, PERRLA, Other (watery drainage from eyes) Neck: Supple, 2+ carotid pulse no bruit Respiratory: Clear to auscultation bilaterally, Normal air movement Cardiovascular: Normal pulses, Regular rate/rhythm, Normal S1 S2 Gastrointestinal: Normal bowel sounds, Soft and benign Musculoskeletal: No clubbing Integumentary: No rashes Neurological: Normal speech, Normal tone - Studies Laboratory Data (last 24 hrs) 05/23/24 05/23/24 05/23/24 08:54 08:54 08:54 WBC 8.60 Hgb 18.7 H Hct 55.2 H Plt Count 182 PT 10.6 INR 0.94 Sodium 139 Potassium 4.4 BUN 16 Creatinine 1.28 Glucose 131 H Total Bilirubin 0.9 AST 21 ALT 25 Alkaline Phosphatase 57 Assessment and Plan - Plan Assessment and Plan Chest pain r/o History of [place] with stent - EKG: No obvious ST segment changes, trend - troponin 6.8, Serial pending - Ordered transthoracic echocardiogram - chest x-ray Reports "The lungs are well inflated and clear. No pneumothorax or sizable effusion. The heart is normal in size. Mediastinal contours are unremarkable." - Consult Cardiology - Heart cath in the AM - S/P aspirin 324 mg PO x 1 in ED - Start daily baby aspirin and statin - Symptom control with PRN acetaminophen, morphine -continuous telemetry -TSH/FreeT4, A1C, lipid panel pending Congestion 2/2 URI -Supportive care -mucinex BID -zyrtec daily -Flu/COVID/RSV pending CVA HTN not being treated Afib -continue home medications DVT ppx hold Eliquis Full code LOS 24 hour OBS Discharge Plan: Home Plan to discharge in: 24 Hours - Advance Directives Does patient have a Living Will: No Does patient have a Durable POA for Healthcare: No
[2024-05-23] MEDS ORDERED: ALBUTEROL 2.5 MG/3 ML NEB SOL NEB PRN (10:52)
[2024-05-23] MEDS ORDERED: HYDRALAZINE HCL 20 MG/ML VIAL IV PRN (11:00)
--- NOTE | 2024-05-23 12:24 | P.CNS ---
Date of Consult: 05/23/24 Chief Complaint: Chest pain r/o History of Present Illness: Patient with PMH of CAD s/p PCI LAD almost 10 years ago, he got two layers of stents in LAD, HTN, presented with worsening headache, memory issues, assoicated with chest pressure sensation for the last 2 days, family report significant COLEMAN, denies palpitations, no syncope. Allergies No Known Allergies Allergy (Verified 05/03/23 12:32) Home medications list reviewed: Yes Home Medications: Amlodipine Bes/Olmesartan Med [Amlodipine-Olmesartan 5-40 mg] 1 each PO DAILY 05/13/22 Apixaban [Eliquis] 5 mg PO BID 05/13/22 Aspirin [Aspirin EC 81 MG] 81 mg PO M,W,F 05/13/22 Empagliflozin/Metformin HCl [Synjardy 12.5-1,000 mg Tablet] 1 each PO DAILY 05/13/22 [place]-3/Dha/Epa/Fish Oil [Fish Oil 1,000 mg Softgel] 1 each PO BID 05/13/22 Omeprazole 20 mg PO DAILY 05/13/22 Rosuvastatin Calcium 40 mg PO BEDTIME 05/13/22 Carboxymethyl/Gly/Poly80/Pf [Refresh Digital Pf Eye Drops] 1 drop OP BID 04/18/23 Cyanocobalamin (Vitamin B-12) [Vitamin B12] 2,500 mcg PO DAILY 04/18/23 Multivit-Min/FA/Lycopen/Lutein [Adults 50 Plus Multivitamin] 1 each PO DAILY 04/18/23 Vitamin D3/Vitamin K2 (Mk4) [K2 Plus D3 Tablet] 1 each PO DAILY 04/18/23 Codeine/APAP [Tylenol #3*] 1 tab PO Q6H PRN #15 tab 05/03/23 - Past Medical/Surgical History Diabetic: Yes -: Cardiac stents x1 in lad jun -: htn -: dm niddm -: kidney stones -: sleep apnea, pt uses cpap -: appendectomy - Family History Father Medical History: Heart disease, Hypertension, Cancer Notes: Kidney stones, Lung ca Mother Medical History: Stroke, Cancer Notes: Mellanoma Brother Notes: Irregular heart rhytm - Social History Smoking Status: Unknown if ever smoked Alcohol use: Yes CD- Drugs: No Caffeine use: Yes Review of Systems 10-point ROS is otherwise unremarkable Physical Examination Temp Pulse Resp BP Pulse Ox 97.8 F 95 H 16 111/96 H 05/23/24 08:43 05/23/24 10:37 05/23/24 10:37 05/23/24 10:37 General: Alert, In no apparent distress HEENT: Atraumatic, PERRLA, Mucous membr. moist/pink, EOMI, Sclerae nonicteric Neck: Supple, 2+ carotid pulse no bruit, No LAD, Without JVD or thyroid abnormality Respiratory: Clear to auscultation bilaterally, Normal air movement Cardiovascular: Regular rate/rhythm, Normal S1 S2 Gastrointestinal: Normal bowel sounds, No tenderness Musculoskeletal: No tenderness Integumentary: No rashes Neurological: Normal gait, Normal speech, Normal tone, Normal affect Lymphatics: No axilla or inguinal lymphadenopathy Laboratory Data (last 24 hrs) 05/23/24 05/23/24 05/23/24 08:54 08:54 08:54 WBC 8.60 Hgb 18.7 H Hct 55.2 H Plt Count 182 PT 10.6 INR 0.94 Sodium 139 Potassium 4.4 BUN 16 Creatinine 1.28 Glucose 131 H Total Bilirubin 0.9 AST 21 ALT 25 Alkaline Phosphatase 57 - Problems (1) HTN (hypertension) Current Visit: Yes Status: Acute Plan: reconcille and resume patient home medications. (2) A-fib Current Visit: No Status: Acute Plan: EKG not seen in chart, patient was not on tele on time of exam Hold Eliquis for now. (3) Chest pain Onset Date: 03/11/14 Current Visit: No Status: Acute Plan: patient with PMH of LAD PCI (got two layers of stents) NPO after midnight for coronary angiogram in am ASA 81 mg daily Lipitor 40 mg daily
[2024-05-23] MEDS ORDERED: CETIRIZINE HCL 5 MG TABLET PO PRN (12:26)
[2024-05-23 12:27] LABS: SARS-CoV-2 Antigen CONTROL BLUE LINE VIS/BG OK; SARS-CoV-2 Antigen Rapid Res Negative (Negative)
[2024-05-23 12:35] VITALS: BMI 35.2
[2024-05-23] MEDS: ACETAMINOPHEN 325 MG TABLET PO PRN (12:55)
[2024-05-23] MEDS: GUAIFENESIN 600 MG SA TAB PO SCH (12:56)
[2024-05-23 13:14] LABS: Thyroid Stimulating Hormone 1.56 uIU/mL (0.358-3.740)
[2024-05-23] MEDS: MORPHINE 2 MG/ML SYR IV PRN (15:16)
[2024-05-23] MEDS: ATORVASTATIN 40 MG TAB PO SCH (20:34)
[2024-05-23] MEDS: ROSUVASTATIN 10 MG TAB PO SCH (20:34)
[2024-05-23 22:03] LABS: Thyroid Stimulating Hormone 4.17 uIU/mL (0.358-3.740)
[2024-05-24 05:35] LABS: Absolute Eosinophils 0.2 K/uL (0-0.5); Absolute Lymphocytes (CBC) 2.2 K/uL (0.7-4.9); Absolute Monocytes 0.6 K/uL (0.1-1.3); Basophils % 0.5 % (0-1.3); Eosinophils % 3.3 % (0-4.4); Hematocrit 50.5 % (39.6-49.0); Hemoglobin 17.1 g/dL (13.6-17.9); Lymphocytes % 36.8 % (15.3-44.8); MCH 33.7 pg (27.0-35.0); MCHC 33.8 g/dL (32.0-36.0); MCV 99.7 fL (80-100); MPV 8.2 fL (7.6-11.3); Monocytes % 9.9 % (3.3-12.3); Neutrophils % 49.5 % (41.7-73.7); Nucleated Red Blood Cells % 0.1 % (0-0); Platelets 166 thou/uL (152-406); RBC Red Blood Cell Count 5.06 M/uL (4.33-5.43); Red Cell Distribution Width 13.9 % (12.1-15.2)
[2024-05-24 05:49] LABS: Anion Gap 8.9 mEq/L (5.0-15.0); Phosphorus 2.2 mg/dL (2.5-4.9); Potassium 3.9 mEq/L (3.5-5.1)
[2024-05-24] MEDS: PANTOPRAZOLE 40MG TABLET PO SCH (06:30)
[2024-05-24] MEDS ORDERED: ENOXAPARIN 40 MG/0.4 ML SQ SCH (09:00)
[2024-05-24] MEDS: ASPIRIN EC 81 MG TAB PO SCH ×2 (09:00)
[2024-05-24] MEDS: TRIZIVIR PO SCH (09:00)
[2024-05-24] MEDS ORDERED: HEPA 1000U/500MLS 2,000 UNIT/1,000 ML BAG IV ONE (11:33)
[2024-05-24] MEDS ORDERED: LIDOCAINE 1% 20 ML MDV ONE (11:34)
[2024-05-24] MEDS ORDERED: MIDAZOLAM HCL 2 MG/2 ML INJ ONE (11:34)
[2024-05-24] MEDS ORDERED: ATROPINE SULF 1 MG/10 ML SYR IV ONE (11:34)
[2024-05-24] MEDS ORDERED: CLOPIDOGREL 75 MG TABLET ONE (11:34)
[2024-05-24] MEDS ORDERED: HEPARIN 10,000 UNIT/10 ML VIAL IV ONE (11:34)
[2024-05-24] MEDS ORDERED: HEPARIN 5000 UNIT/ML 1 ML VIAL ONE (11:35)
[2024-05-24] MEDS ORDERED: ASPIRIN 325 MG TAB ONE (11:35)
[2024-05-24] MEDS ORDERED: TICAGRELOR 90 MG TABLET PO ONE (11:35)
[2024-05-24] MEDS ORDERED: FENTANYL CITR 100 MCG/2 ML ONE (11:35)
[2024-05-24] MEDS ORDERED: NA CHLORIDE 0.9% 500 ML ONE (11:48)
[2024-05-24 12:39] VITALS: TEMP 98.2
[2024-05-24 14:27] VITALS: O2SAT 97
[2024-05-24] MEDS: FOLIC ACID 1 MG TABLET PO SCH (15:00)
[2024-05-24] MEDS: VALSARTAN 160 MG TAB PO SCH (15:01)
[2024-05-24] MEDS: ROPINIROLE HCL 1 MG TAB PO SCH (15:02)
[2024-05-24] MEDS: AMLODIPINE 5 MG TAB PO SCH (15:03)
[2024-05-24 16:36] VITALS: BP 132/87
--- NOTE | 2024-05-24 18:46 | P.DS ---
Admission Date: 05/23/24 Discharge Date: 05/24/24 Reason for Admission: Chest pain r/o Brief History of Present Illness: Diagnosis Chest pain r/o ACS Coronary artery disease History of [place] with stent Congestion 2/2 URI CVA HTN not being treated Afib HPI 05/23/24 Mann Nixon is a 68 year old male with Pmhx Cerebrovascular accident (x2), Myocardial infarction with stent, HTN, Afib who presented to the ED with SOB and chest and arms heaviness x 2 days. Family at the bedside reports, Mann has been laying in bed for two days. Mann reports feeling congested, SOB, and denies coughing. Laboratory evaluation significant for H/H 18.7/55.2, BNP 140, Serum glucose 131. chest x-ray Reports "The lungs are well inflated and clear. No pneumothorax or sizable effusion. The heart is normal in size. Mediastinal contours are unremarkable." Mann will be admitted to hospitalist service for further evaluation and treatment of Chest pressure and congestion. Dr. Lynne consulted. Hospital Course: Mann presented with chest pressure and worsening dyspnea. Dr. Lynne was consulted and performed a left heart cath finding significant coronary artery disease requiring a CABG procedure. Mann reports chest pressure has resolved. He was giving instructions and location as well as phone number for the CT surgery group in [place]. He will need to continue medications such as aspirin, Lipitor, blood pressure medications with activity restriction of lifting no greater than 10 pounds. On 05/24/24, Mann was seen on morning rounds and again post left heart cath and deemed medically stable for discharge. Mann was discharged with instructions to schedule follow-up appointments with PCP, Dr. Lynne, cardiac surgeon in [place]. Mann will need to continue taking his home medications as prescriber and check his blood pressure twice daily. Physical Exam General: Alert and Oriented x3, NAD HEENT: Atraumatic, Normocephalic, PERRLA Neck: Supple, 2+ carotid pulse no bruit Respiratory: Clear to auscultation bilaterally, Normal air movement, on RA Cardiovascular: Normal pulses, Afib with rate control, Normal S1 S2 Gastrointestinal: Normal bowel sounds, Soft and benign on palpation Musculoskeletal: No clubbing Integumentary: No rashes Neurological: Normal speech, Normal tone <Kristina Navarro - Last Filed: 05/24/24 18:30> Admission Date: 05/23/24 Discharge Date: 05/27/24 Hospital Course: Status post cardiac catheterization. Patient noted to have multivessel disease. Cardiology Dr. Lynne recommend outpatient follow-up with CT surgeon at [place] for evaluation for CABG. Okay to discharge to home with cardiac medications and follow-up with CT surgeon by cardiology. <angieblayne - Last Filed: 05/27/24 18:20> Disposition: ROUTINE DISCHARGE Discharge Condition: GOOD Vital Signs/Physical Exam: Temp Pulse Resp BP Pulse Ox 98.2 F 83 18 132/87 96 05/24/24 16:00 05/24/24 16:00 05/24/24 16:00 05/24/24 16:00 05/24/24 16:00 Laboratory Data at Discharge: WBC 6.00 thou/uL (4.3-10.9) 05/24/24 05:13 Hgb 17.1 g/dL (13.6-17.9) D 05/24/24 05:13 Hct 50.5 % (39.6-49.0) H 05/24/24 05:13 Plt Count 166 thou/uL (152-406) 05/24/24 05:13 PT 10.6 SECONDS (9.4-12.5) 05/23/24 08:54 INR 0.94 05/23/24 08:54 Sodium 136 mEq/L (136-145) 05/24/24 05:13 Potassium 3.9 mEq/L (3.5-5.1) 05/24/24 05:13 BUN 18 mg/dL (7-18) 05/24/24 05:13 Creatinine 1.30 mg/dL (0.70-1.30) 05/24/24 05:13 Glucose 112 mg/dL (74-106) H 05/24/24 05:13 Phosphorus 2.2 mg/dL (2.5-4.9) L 05/24/24 05:13 Magnesium 2.0 mg/dL (1.6-2.4) 05/24/24 05:13 Total Bilirubin 0.9 mg/dL (0.2-1.0) 05/23/24 08:54 AST 21 U/L (15-37) 05/23/24 08:54 ALT 25 U/L (16-61) 05/23/24 08:54 Alkaline Phosphatase 57 U/L (45-117) 05/23/24 08:54 Triglycerides 194 mg/dL (<150) H 05/24/24 05:13 Cholesterol 162 mg/dL (<200) 05/24/24 05:13 HDL Cholesterol 43 mg/dL (40-60) 05/24/24 05:13 Cholesterol/HDL Ratio 3.77 05/24/24 05:13 <Kristina Navarro - Last Filed: 05/24/24 18:30> Vital Signs/Physical Exam: Temp Pulse Resp BP Pulse Ox 98.2 F 83 18 132/87 96 05/24/24 16:00 05/24/24 16:00 05/24/24 16:00 05/24/24 16:00 05/24/24 16:00 Laboratory Data at Discharge: WBC 6.00 thou/uL (4.3-10.9) 05/24/24 05:13 Hgb 17.1 g/dL (13.6-17.9) D 05/24/24 05:13 Hct 50.5 % (39.6-49.0) H 05/24/24 05:13 Plt Count 166 thou/uL (152-406) 05/24/24 05:13 PT 10.6 SECONDS (9.4-12.5) 05/23/24 08:54 INR 0.94 05/23/24 08:54 Sodium 136 mEq/L (136-145) 05/24/24 05:13 Potassium 3.9 mEq/L (3.5-5.1) 05/24/24 05:13 BUN 18 mg/dL (7-18) 05/24/24 05:13 Creatinine 1.30 mg/dL (0.70-1.30) 05/24/24 05:13 Glucose 112 mg/dL (74-106) H 05/24/24 05:13 Phosphorus 2.2 mg/dL (2.5-4.9) L 05/24/24 05:13 Magnesium 2.0 mg/dL (1.6-2.4) 05/24/24 05:13 Total Bilirubin 0.9 mg/dL (0.2-1.0) 05/23/24 08:54 AST 21 U/L (15-37) 05/23/24 08:54 ALT 25 U/L (16-61) 05/23/24 08:54 Alkaline Phosphatase 57 U/L (45-117) 05/23/24 08:54 Triglycerides 194 mg/dL (<150) H 05/24/24 05:13 Cholesterol 162 mg/dL (<200) 05/24/24 05:13 HDL Cholesterol 43 mg/dL (40-60) 05/24/24 05:13 Cholesterol/HDL Ratio 3.77 05/24/24 05:13 <blayne adams - Last Filed: 05/27/24 18:20> Diet: AHA Activity: Ad og <Kristina Navarro - Last Filed: 05/24/24 18:30> <blayne adams - Last Filed: 05/27/24 18:20> Home Medications: Amlodipine Bes/Olmesartan Med [Amlodipine-Olmesartan 5-40 mg] 1 each PO DAILY 05/13/22 Apixaban [Eliquis] 5 mg PO DAILY 05/13/22 Aspirin [Aspirin EC 81 MG] 81 mg PO DAILY 05/13/22 Empagliflozin/Metformin HCl [Synjardy 12.5-1,000 mg Tablet] 1 each PO DAILY 05/13/22 Omeprazole 20 mg PO DAILY 05/13/22 Rosuvastatin Calcium 40 mg PO DAILY 05/13/22 Cyanocobalamin (Vitamin B-12) [Vitamin B12] 2,500 mcg PO DAILY 04/18/23 Vitamin D3/Vitamin K2 (Mk4) [K2 Plus D3 Tablet] 1 each PO DAILY 04/18/23 Abacavir/Lamivudine/Zidovudine [Trizivir Tablet] 1 tab PO DAILY 05/23/24 Folic Acid 1 mg PO DAILY 05/23/24 Ropinirole HCl 2 mg PO DAILY 05/23/24 Physician Discharge Instructions: PROBLEM: Chest Pain / Heaviness in arms GOAL: Clear understanding of disease process INSTRUCTIONS: Diet: AHA Activity: Ad og 1. Please call and schedule a follow-up appointment with your PCP in 3-5 days - Please follow-up with your PCP for medication refills/adjustments 2. Please call and schedule a follow-up appointment with Dr. Lynne in 2 weeks -You will need to follow up for a cardiac bypass procedure, address and phone number below -Continue aspirin 81 mg daily, lipitor 40 mg daily, and blood pressure meds as prescribed -check your blood pressure twice daily and record for the doctor to review, If you blood pressure is less than 110 on the top number. 3. Continue heart healthy diet 4. activity restrictions, do not lift greater than 10 pounds 5. Return to the ED if symptoms worsen Continue home medications Cardiovascular surgery [address] floor [phone] Followup: Karlos Lynne MD [ACTIVE - CAN ADMIT] - Rahul Brooks MD [Primary Care Provider] -
--- NOTE | 2024-05-25 11:29 | OP ---
Date of Procedure: 05/24/2024 Surgeon: Karlos Lynne Procedure Performed: 1.Left heart catheterization. 2.Selective angiogram. Indication For Procedure: Unstable angina. Complications: None. Estimated Blood Loss: Less than 50 cc. Access: Right radial, closed by TR band. Sedation Time: 20 minutes with 1 of Versed and 50 of fentanyl. Description Of Procedure: After risks, benefits, and alternatives were explained to the patient, pat ient agreed to proceed with procedure and signed informed consent. The patient was brought back to [facility] custodian, prepped and draped in sterile fashion. Time-out was performed. Sedation was administer ed. Next, right radial access was obtained using ultrasound-guided micropuncture technique. [place] 4 catheter was advanced over J-wire to the LV cavity. LVEDP was obtained, pullback did not show any g radient. Same catheter was used for selective angiogram of the left and right coronary systems. The catheter was later pulled to the aortic root. Selective angiogram of the ROSAS was done during same catheter. At the end of procedure, catheter was removed over a J-wire. Sheath was removed. TR band was applied. Hemostasis achieved. The patient was moved back to recovery in stable condition. Findings: 1.Left main normal. 2.LAD mid stent with distal edge 80% ISR, then mid to distal mild luminal regularities. 3.Diagonal 1 proximal 70% to 80% disease. 4.Left circ, mild luminal irregularities. 5.OM1 normal. 6.OM2 proximal 80% disease, then mild luminal irregularities. 7.RCA mid diffuse 60% disease, then mid to distal 70%-99% diseased, gets left to right collaterals i nto RPDA. 8.ROSAS is patent. 9.LVEDP 12 mmHg. Assessment And Plan: 1.Significant LAD ISR, OM2 disease, diagonal 1 disease and RCA disease. 2.The plan will be to consult CT Surgery as an outpatient for bypass evaluation. VANESSA/YENNI Voice ID: [id number] Report ID: [id number]
--- NOTE | 2024-05-28 11:01 | EKG ---
Test Date: 2024-05-23 Test Time: 08:42:11 Fruit Receiver: ALEE MEASUREMENT RESULTS: Intervals: Rate: 87 SD: QRSD: 92 QT: 358 QTc: 430 Ismay: P: SD: QRS: 30 T: 26 INTERPRETIVE STATEMENTS: Atrial fibrillation Cannot rule out Anterior infarct, age undetermined Abnormal ECG Compared to ECG 04/18/2023 14:17:55 No significant changes Electronically Signed On 05-28-24 10:54:13 LEAN FACILITATOR by Karlos Lynne
== END 2024-05-24 19:26 | disposition home or self-care (01) ==
LOC: ER 08:37 → ERHOLD 10:52 → 2ND 11:31
PROVIDERS: ADMIT Internal Medicine; ATTEND Internal Medicine
PROC: 4A023N7 Measurement of Cardiac Sampling and Pressure, Left Heart, Percutaneous Approach (ICD-10-PCS; principal; 2024-05-24)
PROC: B2111ZZ Fluoroscopy of Multiple Coronary Arteries using Low Osmolar Contrast (ICD-10-PCS; 2024-05-24)
DX: I25.110 Atherosclerotic heart disease of native coronary artery with unstable angina pectoris (principal); T82.855A Stenosis of coronary artery stent, initial encounter; I10 Essential (primary) hypertension; I48.91 Unspecified atrial fibrillation; J06.9 Acute upper respiratory infection, unspecified; I25.2 Old myocardial infarction; R06.00 Dyspnea, unspecified; E11.9 Type 2 diabetes mellitus without complications; G47.30 Sleep apnea, unspecified; Z11.52 Encounter for screening for COVID-19; Z99.81 Dependence on supplemental oxygen; Z79.01 Long term (current) use of anticoagulants; Z79.899 Other long term (current) drug therapy; Z86.73 Personal history of transient ischemic attack (TIA), and cerebral infarction without residual deficits; Z85.118 Personal history of other malignant neoplasm of bronchus and lung; Z82.49 Family history of ischemic heart disease and other diseases of the circulatory system; Z82.3 Family history of stroke; Z80.8 Family history of malignant neoplasm of other organs or systems
CPT/HCPCS: 93005; 85025 ×2; 80048 ×2; 36415 ×2; 83735; 84100; 85610; 80061; 80076; 84443 ×2; 83036; 84484 ×3; 84439 ×2; 83880; 87807; 87804 ×2; 71045; 93458; 76937; 96374; 99285; 87811; C1893; Q9966; J1644; J2003; J2250; J3010; J2270 ×2; J7040; G0378 ×3; 99152; 99153; J0461